=== PATIENT | female | born 1930 | race Caucasian/White ===

== ENCOUNTER 2016-09-02 07:15 | Day surgery (SDC) | payer OTHER ==
--- NOTE | 2016-08-27 14:43 | PREOP HISTORY & PHYSICAL ---
CHIEF COMPLAINT: Patient states that vision is blurry at distance and near. Has to read with a magnifying glass, and avoids driving at night due to halos and starbursts around car headlights. HISTORY: 85 year old female here for evaluation of declining vision over the past year or so. She is having to use a magnifying glass in order to read and see numbers (she does accounting work for a business). She is also having trouble seeing road signs when driving (patient misses intersections because she cannot read road signs in time). The patient avoids driving at night due to severe "starbursts or haloes" around lights at night. The patient recently saw Dr. Gramajo (about 1-2 weeks ago) who recommended that the patient have cataract surgery. The current glasses are several years old. 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 ALLERGIES: Sulfa Drugs (Bactrim, Pediazole, Septra...) hives FAMILY HISTORY: Glaucoma (H40.9) Mother. Macular degeneration (H35.30) Father. SOCIAL HISTORY: Alcohol Use Drinks Rarely. Tobacco Use Never smoker. Vehicle Driving Yes. CURRENT MEDICATIONS: Glucosamine (750MG Tablet, Oral) Active. Multiple Vitamin (Oral) Active. Vitamin D3 (1000UNIT Capsule, Oral) Active. Warfarin Sodium (2.5MG Tablet, Oral) Active. Pantoprazole Sodium (Oral) Specific dose unknown - Active. Vitamin E (Oral) Specific dose unknown - Active. Digoxin (Oral) Specific dose unknown - Active. 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 Hemorrhoidectomy Upper extremity fracture Left arm REVIEW OF SYSTEMS: General Present- Weight Loss. Not Present- Fever. Skin Not Present- New Lesions, Skin Cancer and Skin Problems. HEENT Present- Blurred Vision, Decreased Hearing and Visual Disturbances ( floaters). Not Present- Eye Pain, Sinusitis and Sleep Apnea. Respiratory Not Present- Asthma, Chronic Cough, Emphysema and Shortness of Breath. Breast Not Present- Breast Cancer. Cardiovascular Present- Irregular Heart Beat (Afib-on coumadin and digoxin). Not Present- Angina, Heart Problems, Heart Stent, Hyperlipidemia and Hypertension. Gastrointestinal Present- GI Problems (History of PUD and diverticulosis) and Heartburn. Not Present- PUD. Female Genitourinary Not Present- Kidney Problems. Musculoskeletal Not Present- Joint Pain. Neurological Not Present- Decreased Memory, Headaches, Stroke and Vertigo. Psychiatric Not Present- Anxiety and Depression. Endocrine Not Present- Diabetes and Thyroid Problems. Hematology Present- Anemia. Not Present- Bleeding Problems and Blood Clots. Note: Reviewed by Dr. Dixon. PHYSICAL EXAMINATION: Vitals (Garth Dixon M.D.; 08/24/2016 4:41 PM) 08/24/2016 4:40 PM Pulse: 80 (Irregular) P.OX: 93% (Room air) BP: 113/74 (Sitting, Left Wrist, Small) Chest and Lung Exam Auscultation Breath sounds - Clear and Symmetric throughout. Cardiovascular Auscultation Rhythm - Irregularly irregular. Heart Sounds - Normal heart sounds. Murmurs & Other Heart Sounds - Auscultation of the heart reveals - No Murmurs. OCULAR EXAMINATION: VISUAL ACUITY: with correction (Glasses) OD 20/50-2 OS 20/50-3 NEAR J3 at 14" WORKING Rx: OD +1.25 + 1.00 x 024 OS +3.00 + 0.50 x 158 ADD + 2.50 (Progressive lens) MANIFEST REFRACTION: OD +0.50 + 1.50 x 004 (20/40) Better vision in trial frames OS +2.25 + 1.50 x 143 (20/50+1) Better vision in trial frames ADD + 2.50 (J2 at 14") Better near vision in trial frames than previous Rx CONFRONTATIONAL VISUAL NATION: Normal to counting fingers in four quadrants OU PUPILS: Pupils measure 5 mm OD, 3 mm OS in low room light (anisocoria is greater and more apparent in low-light conditions). No afferent pupillary defect noted OS EXTERNAL: Trace ptosis of the left upper lid. Eyelid function appears normal and equal OU EXTRA-OCULAR MUSCLES: Versions full OU - orthotropic at both distance and near SLIT LAMP EXAM: LIDS/LASHES: Normal OU CONJUNCTIVA: Quiet OU CORNEA: Clear with scant tear film OU. 4+ dense endothelial guttata (and pigmented guttata) OU AC: Deep and quiet OU IRIS: Normal OU PUPILS: Round OU - dilated widely OU LENS: 3+ dense yellow-brown nuclear sclerosis with 2+ diffuse cortical cataract changes OD. 2-3+ dense nuclear sclerosis with 2-3+ diffuse cortical cataract changes OS ANTERIOR VITREOUS: No anterior vitreous cells or pigment seen OU TONOMETRY: TIME: 9:03 AM OD: 12 mm Hg OS: 12 mm Hg DILATING gtt: Phenylephrine 2.5% + Tropicamide 1% FUNDUS: C/D: 0.4 OD, 0.3 OS DISCS: Sharp with clear disc margins OU MACULA: Mild central pigmentary disturbance OU VESSELS: Normal OU PERIPHERY: Posterior vitreous detachment OU with some equatorial drusen OU. No retinal breaks seen KERATOMETRY: OD 44.08 / 44.16 x 048 OS 42.79 / 43.92 x 174 AXIAL LENGTH: OD 23.59 +/- 0.017 OS 23.19 +/- 0.016 IMPRESSION: Cataract, nuclear sclerotic senile, bilateral (H25.13) Story: Visually significant cataracts OU - discussed with patient today who is quite bothered by her current vision and would like to proceed with cataract surgery (plan for OS first). We discussed the refractive goals today and the patient would like to be corrected to a near-plano spherical equivalent postoperatively OS. 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 Discussed with patient today and we discussed the increased risks of corneal issues during cataract surgery, including the need for corneal surgery in the future if this tissue decompensates as a result of her cataract surgery. 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 PLAN: Cataract extraction with intra-ocular lens OS, September 02, 2016. Lid soaks and scrubs BID OU (pre-operative blepharitis protocol and antibiotic ointment instructions handout given to patient today). Erythromycin ophthalmic ointment q hs OU as blepharitis prophylaxis (an e-Rx with refills x 1 was sent to [facility] [place] ([phone]) today). BIOMETRY, OPHTHALMIC, BY PARTIAL COHERENCE INTERFEROMETRY (03572) Started Erythromycin 5MG/GM, Apply 1/8 inch Ointment to the eyelashes of both eyes at bedtime, 1 Tube, 08/24/2016, Ref. x1. Started Zymaxid 0.5%, 1 drop(s) four times daily to the operated eye, after surgery, 1 Bottle, 08/24/2016, Ref. x1. Started PrednisoLONE Acetate 1%, 1 drop(s) four times daily in the operated eye , after surgery, 10 Milliliter, 08/24/2016, Ref. x1. MTDD
[~2016-09-02 07:15] MED LIST: APRACLONIDINE 0.5% OPHTH 5 ML BTL OP ONE; BUPIVACAINE HCL/PF 0.75% 10 ML VIAL OP ONE; CIPROFLOXACIN 0.3% OPHTH 50 DROP/5 ML BTL OP SCH; CYCLOPENTOLATE HCL 1% OPHTH 2 ML BTL OP SCH; FLURBIPROFEN 0.03% OPHTH 2.5 ML BTL OP SCH; PHENYLEPHRINE 2.5% OPHTH 10 DROP/2 ML BTL OP SCH
[2016-09-02] MEDS ORDERED: CIPROFLOXACIN 0.3% OPHTH 50 DROP/5 ML BTL ONE (07:44)
[2016-09-02] MEDS ORDERED: FLURBIPROFEN 0.03% OPHTH 2.5 ML BTL ONE (07:44)
[2016-09-02] MEDS ORDERED: BUPIVACAINE HCL/PF 0.75% 10 ML VIAL ONE (07:44)
[2016-09-02] MEDS ORDERED: APRACLONIDINE 0.5% OPHTH 5 ML BTL ONE (07:44)
[2016-09-02] MEDS ORDERED: PHENYLEPHRINE 2.5% OPHTH 10 DROP/2 ML BTL ONE (07:45)
[2016-09-02] MEDS ORDERED: CYCLOPENTOLATE HCL 1% OPHTH 2 ML BTL ONE (07:45)
[2016-09-02 08:45] VITALS: RESP 16; TEMP 97.5
[2016-09-02] MEDS ORDERED: LIDOCAINE HCL/PF 1% 30 ML VIAL ONE (08:45)
[2016-09-02] MEDS ORDERED: KETOROLAC 0.45% OPHTH 1 DROP/EACH DROPERETTE ONE (08:45)
[2016-09-02] MEDS ORDERED: BACITRACIN OPHTH OINTMENT 3.5 GM TUBE ONE (08:45)
[2016-09-02] MEDS ORDERED: CHONDROITIN/HYALURONIDATE OPHT 0.5 ML KIT ONE (08:45)
[2016-09-02 09:56] VITALS: BP 123/51; PULSE 62; O2SAT 90
--- NOTE | 2016-09-02 15:24 | OPERATIVE REPORT ---
DATE OF SURGERY: 09/02/2016. SURGEON: Garth Dixon MD ANESTHESIA: Topical with monitored anesthesia care. PREOPERATIVE DIAGNOSIS: Cataract, left eye. POSTOPERATIVE DIAGNOSIS: Cataract, left eye. OPERATION PERFORMED: Cataract extraction by phacoemulsification with posterior chamber intraocular lens, left eye. COMPLICATIONS: None. PROCEDURE: The patient was brought to the operating room where she was placed in the supine position. After the instillation of additional tetracaine drops in the left eye, the eye was prepped and draped in the usual sterile ophthalmic manner. A lid speculum was placed in the left eye, after which an inferior paracentesis was fashioned with 1-mm steel keratome, and 0.2 mL of 1% nonpreserved lidocaine was injected intracamerally followed by Viscoat. A temporal clear corneal incision of 3-mm width was fashioned with a steel keratome. A continuous curvilinear capsulorrhexis was fashioned with a bent-needle cystitome and Utrata forceps under Viscoat. Hydrodissection was carried out with balanced salt solution on an intraocular cannula. The nucleus was noted to rotate freely. Phacoemulsification proceeded in a two-handed fashion utilizing high phacoemulsification times and jaimes, as the nucleus was noted to be 3+ dense. Since the patient has severe corneal endothelial dystrophy, great care was taken during phaco, including reinjecting Viscoat two more times during phaco, and disassembling and phacoemulsifying the lens within the capsular bag instead of my typical routine of doing this in the iris plane. Residual cortical material was then removed with the automated irrigation-aspiration handpiece. The anterior chamber and capsular bag were then reinflated with Provisc, after which an AcrySof model SA60AT foldable acrylic intraocular lens of 22.5 diopters power was placed into the capsular bag. The haptics were rotated with a Y hook and the intraocular lens was noted to center well. Residual viscoelastic was then removed with the automated irrigation-aspiration handpiece, after which the wound edges were hydrated with balanced salt solution. The intraocular pressure at the conclusion of the procedure was physiologic, and there was no evidence of wound leakage upon testing with a Weck Corrine sponge. Acular drops and bacitracin ointment were placed in the left eye, and the patient was brought to the recovery area, having tolerated the procedure well. She was given full postoperative instructions. JOSE CARLOS
== END 2016-09-02 10:00 | disposition home or self-care (01) ==
LOC: SDS 07:15
PROVIDERS: ATTEND Ophthalmology
DX: H25.12 Age-related nuclear cataract, left eye (principal); Z83.511 Family history of glaucoma; K58.9 Irritable bowel syndrome, unspecified; I48.2 Chronic atrial fibrillation; K31.1 Adult hypertrophic pyloric stenosis; Z79.01 Long term (current) use of anticoagulants; Z79.899 Other long term (current) drug therapy
CPT/HCPCS: J0171; V2632